=== PATIENT | male | born 1955 | race African-American/Black ===

== ENCOUNTER 2017-08-24 10:27 | Emergency (ER) | payer SELFPAY ==
[~2017-08-24] VITALS: Ht 162.6 cm; Wt 67.0 kg
[2017-08-24 10:29] VITALS: BP 164/97; PULSE 93; RESP 16; TEMP 98.9; O2SAT 98
--- NOTE | 2017-08-24 11:06 | PD ---
HPI Chief Complaint: Cold / Flu Symptoms Time Seen by Provider: 10:37 Travel History International Travel<30 days: No Contact w/Intl Traveler<30days: No Traveled to known affect area: No History of Present Illness HPI Patient is a 62-year-old male presents to emergency room with complaints of URI. Patient reports that for the past 3 weeks, he has had increased sinus congestion, reports that his ears feel "clogged," reports that he increased post nasal drip. Reports that now, the mucous is dripping down his throat and is causing him to cough. Reports that when he coughs, he is bringing up thick white mucous. Denies fever/chills. Reports no sick contacts. Denies any recent travels or trips. Patient reports that he is a smoker. Denies chest pain/sob. Denies abdominal pain, denies n/v/d. Patient did not receive influenza vaccine this year PFSH Past Medical History Asthma: No Cardiovascular Problems: Yes Cerebrovascular Accident: No Coronary Artery Disease: Yes Dialysis: No Past Surgical History Cardiac Surgery: Yes (X2 ? REPAIR A CHILD) Coronary Artery Bypass Graft: Yes Social History Alcohol Use: Yes (4 BEERS DAILY) Tobacco Use: Yes (1/2 PPD) Substance Use: No Allergies-Medications (Allergen,Severity, Reaction): Coded Allergies: No Known Allergies (Verified Adverse Reaction, Unknown, 08/24/17) Reported Meds & Prescriptions Reported Meds & Active Scripts Active No Active Prescriptions or Reported Medications Review of Systems General / Constitutional: No: Fever, Chills Eyes: No: Visual changes HENT: Positive: Sore Throat, Rhinitis, Rhinorrhea, Earache, No: Headaches Cardiovascular: No: Chest Pain or Discomfort Respiratory: Positive: Cough, No: Shortness of Breath, Wheezing Gastrointestinal: No: Nausea, Vomiting, Diarrhea, Abdominal Pain Genitourinary: No: Urgency, Frequency, Dysuria Musculoskeletal: No: Pain Skin: No Rash Neurologic: No: Weakness Psychiatric: No: Depression Endocrine: No: Polydipsia Hematologic/Lymphatic: No: Easy Bruising Physical Exam Narrative GENERAL: NAD, Nontoxic SKIN: Focused skin assessment warm/dry. HEAD: Atraumatic. Normocephalic. EYES: Pupils equal and round. No scleral icterus. No injection or drainage. ENT: No nasal bleeding or discharge. Mucous membranes pink and moist. NECK: Trachea midline. No JVD. CARDIOVASCULAR: Regular rate and rhythm. No murmur appreciated. RESPIRATORY: No accessory muscle use. Scattered wheezing on exam. Breath sounds equal bilaterally. GASTROINTESTINAL: Abdomen soft, non-tender, nondistended. Hepatic and splenic margins not palpable. MUSCULOSKELETAL: No obvious deformities. No clubbing. No cyanosis. No edema. NEUROLOGICAL: Awake and alert. Normal speech. PSYCHIATRIC: Appropriate mood and affect; insight and judgment normal. Data Data Last Documented VS Vital Signs Date Time Temp Pulse Resp B/P (MAP) Pulse Ox O2 Delivery O2 Flow Rate FiO2 08/24/17 11:02 Room Air 08/24/17 10:29 98.9 93 16 164/97 (119) 98 Orders Orders Influenzae A/B Antigen (08/24/17 10:38) Chest, Pa & Lat (08/24/17 10:38) [facility] Medical Decision Making Medical Screen Exam Complete: Yes Emergency Medical Condition: Yes Medical Record Reviewed: Yes Interpretation(s) Vital Signs Date Time Temp Pulse Resp B/P (MAP) Pulse Ox O2 Delivery O2 Flow Rate FiO2 08/24/17 10:29 98.9 93 16 164/97 (119) 98 Differential Diagnosis Sinusitis, influenza, pneumonia, otitis media, strep pharyngitis Narrative Course Patient is a nontoxic 62-year-old male who presents to emergency room with complaints of 3 weeks of sinus congestion, post drip and nonproductive cough. Patient with no fever or chills, no chest pain or shortness of breath, patient has tried yoko-zva-[id number] remedies with no relief of symptoms. During the course of the patients emergency department visit, the patients history, examination, and differential diagnosis were reviewed with the patient. The patient was placed on a rn cardiac with oximetry and frequent blood pressure monitoring. The patients laboratory studies were reviewed and remarkable for: Microbiology Date/Time Source Procedure Growth Status 08/24/17 11:05 Nasal Washing Influenza Types A,B Antigen (RAMÓN) - Final NEGATIVE FOR FLU A AND B ANTIGEN.... Complete Radiology studies were reviewed and remarkable for: Last Impressions Chest X-Ray 08/24/17 1038 Signed Impressions: Service Date/Time: Thursday, August 24, 2017 10:49 - CONCLUSION: 1. Cardiomegaly status post CABG. 2. Status post left thoracotomy 3. Mild central vascular congestion without evidence of pulmonary edema, pleural effusions or consolidating airspace disease. Viral Tilley MD Patient is well-appearing on exam, patient with negative influenza antigen, x- ray of the chest with no acute infiltrates, plan to treat patient for sinusitis. Patient will follow up with his pcp and will return to ER as needed Diagnosis Primary Impression: Sinusitis Qualified Codes: J01.90 - Acute sinusitis, unspecified Patient Instructions: General Instructions Additional Instructions: Please take all medications as prescribed Please follow-up with your primary care doctor Return to the emergency room if symptoms worsen or progress Return to the emergency room as needed Med/Other Pt SpecificInfo: Prescription(s) given Scripts Amoxicillin-Clavulanate (Augmentin) 875-125 Mg Tab 1 TAB PO BID for Infection for 10 Days, #20 TAB 0 Refills Prov: Caitlin Bravo DO 08/24/17 Disposition: 01 DISCHARGE HOME Condition: Stable Caitlin Bravo DO Aug 24, 2017 11:06
--- NOTE | 2017-08-24 11:28 | RADRPT ---
EXAM DATE/TIME: 08/24/2017 10:49 [facility] COMPARISON: No previous studies available for comparison. INDICATIONS : Cough, shortness of breath. MEDICAL HISTORY : Smoker. SURGICAL HISTORY : CABG. ENCOUNTER: Initial ACUITY: 2 weeks PAIN SCORE: 0/10 LOCATION: Bilateral chest FINDINGS: Heart is mildly enlarged. Postsurgical changes from previous thoracotomy are identified Mild central interstitial vascular prominence is noted. There is no evidence of consolidating airspac e disease or effusion. CONCLUSION: 1. Cardiomegaly status post CABG. 2. Status post left thoracotomy 3. Mild central vascular congestion without evidence of pulmonary edema, pleural effusions or consoli dating airspace disease. Viral Tilley MD on August 24, 2017 at 11:25 Board Certified Radiologist. This report was verified electronically.
[2017-08-24] MEDS ORDERED: AUGM875T3 PO (11:56)
[2017-08-24] MEDS ORDERED: AMOXICILLIN/CLAVULANATE K 875 MG TAB PO ONE (12:00)
== END 2017-08-24 12:22 | disposition home or self-care (01) ==
LOC: NEPD 10:27
DX: J01.90 Acute sinusitis, unspecified (principal); F17.210 Nicotine dependence, cigarettes, uncomplicated
CPT/HCPCS: 71020; 87804; 99283

== ENCOUNTER 2017-08-27 16:30 | Emergency (ER) | payer OTHER ==
[~2017-08-27 16:30] MED LIST: AUGM875T3 PO
[2017-08-27 16:36] VITALS: BP 183/87; PULSE 91; RESP 16; TEMP 97.8
[2017-08-27] MEDS ORDERED: IBUP1TAB7 PO (18:37)
[2017-08-27] MEDS ORDERED: ROBA500T PO (18:37)
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
[2017-08-27 18:44] VITALS: PULSE 74; RESP 18; O2SAT 100
[2017-08-27] MEDS ORDERED: METHOCARBAMOL 500 MG TAB PO ONE (18:45)
[2017-08-27] MEDS ORDERED: IBUPROFEN 600 MG TAB PO ONE (18:45)
== END 2017-08-27 19:31 | disposition home or self-care (01) ==
LOC: NEPK 16:30
DX: S46.911A Strain of unspecified muscle, fascia and tendon at shoulder and upper arm level, right arm, initial encounter (principal); F17.200 Nicotine dependence, unspecified, uncomplicated; V73.6XXA Passenger on bus injured in collision with car, pick-up truck or van in traffic accident, initial encounter
CPT/HCPCS: 99284

== ENCOUNTER 2018-03-15 21:36 | Inpatient (IN) ==
[2018-03-15] MEDS ORDERED: niCARdipine Inj 25 MG in Sodium Chlor 0.9% Inj 240 ML IV.CONT PRN (22:07)
[2018-03-15] MEDS ORDERED: Sod Chloride 0.9% Inj 1,000 ML IV.CONT SCH (22:15)
--- NOTE | 2018-03-15 22:20 | XR ---
EXAM DATE: 03/15/2018 10:17 PM EDT AGE/SEX: 62 years / Male INDICATIONS: Chest pain. CLINICAL DATA: This is the patient's initial encounter. Patient reports that signs and symptoms have been present for 1 day and indicates a pain score of 7/10. MEDICAL/SURGICAL HISTORY: Cardiovascular disease. CABG. COMPARISON: No prior exams available for comparison. FINDINGS: Mild cardiomegaly without infiltrate or failure. There is no pleural effusion. There is no obvious co nsolidation. CONCLUSION: Mild compensated cardiomegaly Electronically signed by: Dick Francis MD 03/15/2018 10:19 PM EDT
--- NOTE | 2018-03-15 22:48 | ED ---
[facility] General Chief Complaint: Neuro Symptoms/Deficit Stated Complaint: Numbness Time Seen by Provider: 03/15/18 21:51 Source: patient, family, RN notes reviewed and old records reviewed History of Present Illness HPI Narrative: Is a 8-year-old male presents emergency department complaining of left-sided facial numbness is been ongoing for the past day or so. Surgery of left-sided headache, and he reports some toothache on the same side. Pressures mostly in the head and behind the eye. He also feels generally unwell. No history of any medical problems that he knows of. Does not take any medications or see a doctor is been ongoing for the past day or so, constant , worsening, with no other aggravating or alleviating factors. He has been taking a lot of [id number] NSAIDs for the past 3 or 4 days. A lot of pain on the left lower tooth. Related Data Home Medications Medication Instructions Recorded Confirmed No Known Home Medications 03/16/18 03/16/18 Allergies Allergy/AdvReac Type Severity Reaction Status Date / Time No Known Allergies Unknown Uncoded 08/24/17 10:33 Review of Systems ROS Unobtainable All other systems reviewed negative except as stated in HPI [facility] Medical History Medical History Patient denies medical problems (Acute) Patient denies medical problems (Acute) Social History Social History Substance History: No History of Abuse Smoking Status: Current every day smoker Tobacco Type: Cigarettes How Often Do You Have a Drink Containing Alcohol: 4 or more times a week Recent Travel in [facility] within the Last 8 Weeks: No Recent Out of Country Travel within the Last 8 Weeks: No Exam Narrative Exam Narrative: GENERAL: Generally well-appearing adult male, no acute distress. SKIN: Focused skin assessment warm/dry. HEAD: Atraumatic. Normocephalic. EYES: Pupils equal and round. No scleral icterus. No injection or drainage. ENT: Significant dental decay, there is a lot of decay in his bottom left tooth. Significant pain with percussion of the first molar on the left on the bottom. All the other teeth around the tooth are missing. There is no gum swelling, purulent drainage, or other obvious abscess. NECK: Trachea midline. No JVD. CARDIOVASCULAR: Regular rate and rhythm. Blowing systolic murmur. RESPIRATORY: No accessory muscle use. Clear to auscultation. Breath sounds equal bilaterally. GASTROINTESTINAL: Abdomen soft, non-tender, nondistended. Hepatic and splenic margins not palpable. MUSCULOSKELETAL: No obvious deformities. No clubbing. No cyanosis. No edema. NEUROLOGICAL: Awake and alert. Patient has loss of vision in his nasal inferior quadrant just in the right eye. Visual shah are full in the left eye. He has subjective numbness in V2 and V3 on the left. Otherwise Cranial nerves II through XII are intact. Strength is full and equal upper and lower extremities. Normal finger to nose. Normal heel to carballo. No pronator drift. Course Hospital Course: Blood pressure is well controlled with the Cardene. Discussed with patient recommendation for admission. Initially agreeable but then states that he 1 he has capacity to make medical decisions. Discussed explicitly the risk of stroke , my concern given his markedly elevated blood pressure and his numbness and tingling in his face, symptoms not explained by his dental infection, that he would be at high risk for recurrent stroke. His was in the room while we were discussing. After discussion amongst themselves, they are still insisting upon discharge. Does not meet criteria for involuntary hold. Initial Documented Vital Signs Temperature 98.6 F 03/15/18 21:44 Pulse Rate 92 H 03/15/18 21:44 Respiratory Rate 16 03/15/18 21:44 Blood Pressure 238/105 H 03/15/18 21:44 Pulse Oximetry 98 03/15/18 21:44 Last Documented Vital Signs Temperature 98.6 F 03/15/18 21:44 Pulse Rate 87 03/16/18 00:52 Respiratory Rate 18 03/16/18 00:51 Blood Pressure 160/79 H 03/16/18 00:51 Pulse Oximetry 97 03/16/18 00:51 NIH Stroke Scale NIH Stroke Scale Level of Consciousness: 0-Alert Orientation Questions: 0-Answers both correct Responds to Commands: 0-Both tasks correct Gaze Eye Movement: 0-Horizontal movement WNL Visual Shah: 0-No visual field defect Facial Movement: 0-Normal Motor Functions Arm LEFT: 0-No drift Motor Functions Arm RIGHT: 0-No drift Motor Functions Leg LEFT: 0-No drift Motor Functions Leg RIGHT: 0-No drift Limb Ataxia: 0-No ataxia Sensory Loss: 1-Mild sensory loss Best Language: 0-Normal Articulation: 0-Normal Extinction or Inattention Sensory: 0-Absent Total: 1 Medical Decision Making MDM Narrative Medical decision making narrative: So well 32-year-old male presents emerged for markedly elevated blood pressure left-sided numbness. This is concerning for TIA stroke symptoms. Patient does have dental pain in the left tube but this is really just the mandibular molar, really should not affect his V2 distribution. He has been taking a lot of NSAIDs which may have affected blood pressure. No known medical history but EKG shows evidence of LVH suggesting long-standing. Will check CT, labs, pain medicine for the tooth, nicardipine. Reassess. Lab Data Result diagrams: 03/15/18 22:12 Lab Results 03/15/18 03/15/18 03/15/18 Range/Units 22:12 22:12 22:20 PT 10.0 (9.8-11.6) sec INR 1.0 Ratio APTT 32.4 H (24.3-30.1) sec Sodium 140 (136-145) meq/L Potassium 3.4 L (3.5-5.1) meq/L Chloride 109 H (98-107) meq/L Carbon Dioxide 20.3 L (21.0-32.0) meq/L Anion Gap 11 (5-15) meq/L BUN 17 (7-18) mg/dL Creatinine 1.10 (0.60-1.30) mg/dL Estimated GFR 83 L (>89) mL/min POC Glucose (68-110) mg/dl Random Glucose 76 (74-106) mg/dL Calcium 9.4 (8.5-10.1) mg/dL Total Bilirubin 0.5 (0.2-1.0) mg/dL AST 18 (15-37) U/L ALT 26 (12-78) U/L Alkaline Phosphatase 74 (45-117) U/L Total Creatine Kinase 260 (39-308) U/L CK-MB (CK-2) 3.9 H (0.5-3.6) ng/mL Troponin I 0.05 (0.02-0.05) ng/mL Total Protein 8.6 H (6.4-8.2) g/dL Albumin 4.1 (3.4-5.0) g/dL Urine Color (Yellw/Straw) Urine Clarity (Clear) Urine pH (5.0-8.5) Ur Specific [place] (1.002-1.035) Urine Protein (Neg-Trace) mg/dL Urine Glucose (UA) (Negative) mg/dL Urine Ketones (Negative) mg/dL Urine Occult Blood (Negative) Urine Nitrate (Negative) Urine Bilirubin (Negative) Urine Urobilinogen (Less than 2) mg/dL Ur Leukocyte Esterase (Negative) Urine WBC (0-5) /hpf Ur Squamous Epith Cells (0-5) /hpf Urine Bacteria (None) /hpf Urine Mucus (Occasional) /lpf Micro UA Comment Urine Culture Comments Urine Opiates Screen (Neg) Ur Barbiturates Screen (Neg) Ur Amphetamines Screen (Neg) U Benzodiazepines Scrn (Neg) Urine Cocaine Screen (Neg) U Cannabinoids Screen (Neg) Blood Type O Positive Blood Type Recheck Required Antibody Screen Negative 03/15/18 03/16/18 03/16/18 Range/Units 22:22 00:30 00:30 PT (9.8-11.6) sec INR Ratio APTT (24.3-30.1) sec Sodium (136-145) meq/L Potassium (3.5-5.1) meq/L Chloride (98-107) meq/L Carbon Dioxide (21.0-32.0) meq/L Anion Gap (5-15) meq/L BUN (7-18) mg/dL Creatinine (0.60-1.30) mg/dL Estimated GFR (>89) mL/min POC Glucose 85 (68-110) mg/dl Random Glucose (74-106) mg/dL Calcium (8.5-10.1) mg/dL Total Bilirubin (0.2-1.0) mg/dL AST (15-37) U/L ALT (12-78) U/L Alkaline Phosphatase (45-117) U/L Total Creatine Kinase (39-308) U/L CK-MB (CK-2) (0.5-3.6) ng/mL Troponin I (0.02-0.05) ng/mL Total Protein (6.4-8.2) g/dL Albumin (3.4-5.0) g/dL Urine Color Yellow (Yellw/Straw) Urine Clarity Clear (Clear) Urine pH 5.0 (5.0-8.5) Ur Specific [place] 1.020 (1.002-1.035) Urine Protein Negative (Neg-Trace) mg/dL Urine Glucose (UA) Negative (Negative) mg/dL Urine Ketones Trace (Negative) mg/dL Urine Occult Blood Negative (Negative) Urine Nitrate Negative (Negative) Urine Bilirubin Negative (Negative) Urine Urobilinogen Less than 2 (Less than 2) mg/dL Ur Leukocyte Esterase Negative (Negative) Urine WBC Less than 1 (0-5) /hpf Ur Squamous Epith Cells 1 (0-5) /hpf Urine Bacteria Rare H (None) /hpf Urine Mucus Few H (Occasional) /lpf Micro UA Comment Culture not ind Urine Culture Comments Culture not ind Urine Opiates Screen Neg (Neg) Ur Barbiturates Screen Neg (Neg) Ur Amphetamines Screen Neg (Neg) U Benzodiazepines Scrn Neg (Neg) Urine Cocaine Screen Pos (Neg) U Cannabinoids Screen Neg (Neg) Blood Type Blood Type Recheck Antibody Screen Imaging Data Radiologist's impression: ITS Impressions Chest X-Ray 03/15/18 22:04 CONCLUSION: Mild compensated cardiomegaly Head CT 03/15/18 22:04 CONCLUSION: 1. Negative for acute process ECG Data EKG Prior to Arrival: No Attestation: I personally reviewed and interpreted this ECG as follows: Interpretation: Normal sinus rhythm at a rate of 84, normal axis, normal intervals, ST elevations across the precordium with lateral depressions suggestive of LVH. Discharge Plan Discharge Disposition Patient Disposition: Left Against Medical Advice Discharge Condition Condition: Serious Discharge Order Discharge Orders: AMA Discharge (Routine); Ordered 03/16/18 Ordered By: Oscar Roy Discharge Details Discharge Problem: Hypertensive emergency Physicians Team ED Provider: Oscar Roy Primary Care Provider: Primary Care Ysabel Story Attending Provider: Elver Mendieta Status ED Status: Admitted Patient
[2018-03-15 23:03] LABS: Activated Partial Thrombo Time 32.4 sec (24.3-30.1)
[2018-03-15 23:09] LABS: Albumin 4.1 g/dL (3.4-5.0); Anion Gap 11 meq/L (5-15); Aspartate Aminotransferase 18 U/L (15-37); Blood Urea Nitrogen 17 mg/dL (7-18); Calcium 9.4 mg/dL (8.5-10.1); Carbon Dioxide 20.3 meq/L (21.0-32.0); Chloride 109 meq/L (98-107); Glomerular Filtration Rate 83 mL/min (>89); Glucose,Random 76 mg/dL (74-106); Potassium 3.4 meq/L (3.5-5.1); Sodium 140 meq/L (136-145)
[2018-03-15 23:10] LABS: Alanine Aminotransferase 26 U/L (12-78)
[2018-03-15 23:14] LABS: Alkaline Phosphatase 74 U/L (45-117); Creatine Kinase 260 U/L (39-308); Total Protein 8.6 g/dL (6.4-8.2); Troponin I 0.05 ng/mL (0.02-0.05)
[2018-03-15 23:26] LABS: Creatine Kinase MB 3.9 ng/mL (0.5-3.6)
[2018-03-16] MEDS ORDERED: Dextrose 50% in Water 50 ML Vial IV.PUSH PRN (00:34)
[2018-03-16] MEDS ORDERED: LORazepam 1 MG Tablet PO PRN (00:40)
[2018-03-16] MEDS ORDERED: Haloperidol Inj 5 MG/ML Ampul IV.PUSH PRN (00:40)
[2018-03-16 00:54] LABS: Bacteria,Urine Rare /hpf; Bilirubin,Urine Negative (Negative); Clarity,Urine Clear (Clear); Color,Urine Yellow (Yellw/Straw); Glucose,Urine (UA) Negative (Negative); Leukocyte Esterase,Urine Negative (Negative); Mucus,Urine Few /lpf (Occasional); Nitrite,Urine Negative (Negative); Squamous Epithelial Cell,Urine 1 /hpf (0-5)
[2018-03-16 00:57] LABS: Amphetamine Screen,Urine Neg (Neg); Barbiturate Screen,Urine Neg (Neg); Cannabinoid Screen,Urine Neg (Neg); Cocaine Screen,Urine Pos (Neg); Opiate Screen,Urine Neg (Neg)
[2018-03-16] MEDS ORDERED: amLODIPine 5 MG Tablet PO SCH (09:00)
[2018-03-16] MEDS ORDERED: Heparin - SQ 10,000 UNITS/ML Vial SQ SCH (09:00)
--- NOTE | 2018-03-16 10:44 | ECG ---
Date Performed: 03/15/2018 Time Performed: 22:04:12 PTAGE: 62 years EKG: Sinus rhythm POSSIBLE RIGHT ATRIAL ENLARGEMENT POSSIBLE LEFT ATRIAL ENLARGEMENT LEFT VENTRICULAR HYPERTROPHY AND ST-T CHANGE ABNORMAL ECG NO PREVIOUS TRACING DOCTOR: Ion Shaver Interpretating Date/Time 03/16/2018 10:43:47
== END 2018-03-16 01:04 | disposition left against medical advice (07) ==
LOC: NEPC 21:36 → NEDA 03-16 00:34
PROVIDERS: ADMIT Internal Medicine; ATTEND Internal Medicine